=== PATIENT | male | born 1955 | race Caucasian/White ===

== ENCOUNTER 2025-08-10 15:36 | Inpatient (IN) | payer MEDICARE, OTHER ==
[~2025-08-10] VITALS: Ht 175.3 cm; Wt 84.6 kg
[2025-08-10] MEDS ORDERED: AMLO10TA59 GT (15:55)
[2025-08-10] MEDS ORDERED: PANT40TA49 GT (15:55)
[2025-08-10] MEDS ORDERED: CARV12.52 GT (15:55)
[2025-08-10] MEDS ORDERED: ATOR10TA GT (15:55)
[2025-08-10] MEDS ORDERED: SILO8CAP2 GT (15:55)
[2025-08-10] MEDS ORDERED: FAMO20TA8 GT (15:55)
[2025-08-10] MEDS ORDERED: VALP250C3 GT (15:55)
[2025-08-10] MEDS: IV NORMAL SALINE 1000 ML BAG IV ONE (16:11)
[2025-08-10] MEDS: PIPERACILLIN SODIUM/TAZOBACTAM 3.375 G in IV DEXTROSE 5% 50 ML IV ONE (16:11)
[2025-08-10] MEDS ORDERED: PIPERACILLIN/TAZOBACTAM/D5W 50 ML IV ONE (16:12)
[2025-08-10] MEDS ORDERED: CLINDAMYCIN 600 MG PIGGYBACK**ER OMNI IV ONE (16:12)
[2025-08-10] MEDS ORDERED: VANCOMYCIN IV 200 ML ONE (16:12)
[2025-08-10 16:20] LABS: PLATELET COUNT (AUTO) 241 K/uL (152-348); RED BLOOD CELL COUNT(AUTO) 4.96 MIL/uL (4.06-5.63); RED CELL DISTRIBUTION WIDTH 14.5 % (12.1-16.2); WHITE BLOOD COUNT (AUTO) 10.9 K/uL (3.6-10.2)
[2025-08-10 16:36] LABS: ASPARTATE AMINOTRANSFERASE 14 U/L (15-37); CREATININE 1.2 mg/dL (0.6-1.3); TOTAL PROTEIN, SERUM 9.0 g/dL (6.4-8.2); UREA NITROGEN, BLOOD 46 mg/dL (7-18)
[2025-08-10 16:38] LABS: SODIUM SERUM 159 mmol/L (136-145)
[2025-08-10] MEDS: CLINDAMYCIN PHOSPHATE IV 600 MG in IV DEXTROSE 5% 100 ML IV ONE (16:42)
[2025-08-10 17:01] LABS: *BILIRUBIN,URIN 1+ (NEGATIVE); *CLARITY,URINE CLEAR (CLEAR); *KETONES,URINE TRACE (NEGATIVE); *PROTEIN,URINE 2+ (NEGATIVE); *UROBILINOGEN,URINE 4.0 E.U./dl (NORMAL); LEUKOCYTE ESTERASE ,URINE NEGATIVE (NEGATIVE); NITRITE, URINE NEGATIVE (NEGATIVE); UGLUCOSE NEGATIVE (NEGATIVE)
[2025-08-10 17:02] LABS: *BLOOD, URINE TRACE (NEGATIVE); *COLOR,URINE DARK YELLOW (YELLOW)
[2025-08-10 17:11] LABS: SQUAMOUS EPITHELIAL CELL,UR FEW /HPF (NONE SEEN)
[2025-08-10] MEDS: VANCOMYCIN IV 1,000 MG in IV DEXTROSE 5% 250 ML IV ONE (17:25)
[2025-08-10] MEDS ORDERED: REMEDY ESSENTIAL ZINC PASTE 113 GM TP PRN (18:45)
[2025-08-10] MEDS ORDERED: ACETAMINOPHEN 325 MG TABLET PO PRN (18:45)
[2025-08-10] MEDS ORDERED: ONDANSETRON 4 MG/2 ML VIAL IV PRN (18:45)
[2025-08-10] MEDS ORDERED: PIPERACILLIN SODIUM/TAZOBACTAM 3.375 G in IV DEXTROSE 5% 50 ML IV SCH (20:00)
[2025-08-10] MEDS ORDERED: ACETAMINOPHEN 650 MG/20.3 ML LIQUID UDC ONE (20:14)
[2025-08-10] MEDS: IV 1/2NS 1000 ML 1,000 ML IV PRN (20:31)
[2025-08-10] MEDS: ACETAMINOPHEN 650 MG/20.3 ML LIQUID UDC GT PRN (20:32)
[2025-08-10] MEDS ORDERED: VALPROIC ACID 250 MG CAPSULE PO SCH (21:00)
[2025-08-10] MEDS ORDERED: PANTOPRAZOLE SODIUM 40 MG TABLET.DR PO SCH (21:00)
[2025-08-10 21:16] VITALS: BP 132/92
[2025-08-10 22:15] VITALS: BP 111/80; TEMP 98.4; O2SAT 97
[2025-08-10] MEDS: PANTOPRAZOLE ORAL SUSPENSION 40 MG SUSPDR.PKT GT SCH (22:34)
[2025-08-10] MEDS: ATORVASTATIN 10 MG TABLET GT SCH (22:34)
[2025-08-10] MEDS: CARVEDILOL 12.5 MG TABLET GT SCH (22:36)
[2025-08-10] MEDS: LACTULOSE 20 G/30 ML LIQUID UDC GT ONE ×2 (22:37→22:50)
[2025-08-10] MEDS: VALPROIC ACID 250 MG/5 ML LIQUID UDC GT SCH (22:37)
[2025-08-11] VITALS (12 sets, daily range): BP systolic 103–123; BP diastolic 60–81; TEMP 97.3–98.3; O2SAT 92–99
[2025-08-11] MEDS ORDERED: PIPERACILLIN/TAZOBACTAM/D5W 50 ML IV ONE (02:36)
[2025-08-11] MEDS: PIPERACILLIN SODIUM/TAZOBACTAM 3.375 G in IV DEXTROSE 5% 50 ML IV SCH ×2 (02:38→14:03)
[2025-08-11] MEDS: VANCOMYCIN IV 1,000 MG in IV DEXTROSE 5% 250 ML IV SCH (05:37)
[2025-08-11 07:09] LABS: CREATININE 1.3 mg/dL (0.6-1.3); SODIUM SERUM 155.0 mmol/L (136-145); UREA NITROGEN, BLOOD 53.0 mg/dL (7-18)
[2025-08-11 07:33] LABS: RED BLOOD CELL COUNT(AUTO) 4.39 MIL/uL (4.06-5.63); RED CELL DISTRIBUTION WIDTH 14.7 % (12.1-16.2); WHITE BLOOD COUNT (AUTO) 10.7 K/uL (3.6-10.2)
[2025-08-11] MEDS: ALBUTEROL SULFATE 2.5 MG/3 ML NEBU NEB SCH (07:40)
[2025-08-11] MEDS: IPRATROPIUM BROMIDE 0.5 MG/2.5 ML NEBU NEB SCH (07:40)
[2025-08-11] MEDS: AMLODIPINE 10 MG TABLET GT SCH (08:37)
[2025-08-11] MEDS ORDERED: FAMOTIDINE 20 MG TABLET GT SCH ×2 (09:00→12:00)
[2025-08-11] MEDS ORDERED: SILODOSIN 8 MG GT SCH (09:00)
[2025-08-11 10:00] LABS: EOSINOPHILS % (MANUAL) 1 % (0-8); LYMPHOCYTES % (MANUAL) 10 % (20-40); MONOCYTES % (MANUAL) 5 % (2-10); NEUTROPHILS % (MANUAL) 84 % (42-75); PLATELET COUNT (AUTO) 154 K/uL (152-348)
[2025-08-11 10:02] LABS: PLATELET ESTIMATE ADEQUATE
[2025-08-11] MEDS: POTASSIUM CHLORIDE 20 MEQ POWDER PACKET GT ONE (11:30)
[2025-08-11] MEDS ORDERED: PIPERACILLIN SODIUM/TAZOBACTAM 3.375 G in IV DEXTROSE 5% 50 ML IV SCH (12:00)
[2025-08-11] MEDS: OSMOLITE 1.2 CAL 1,000 ML LIQUID GT PRN (12:57)
[2025-08-11] MEDS: DOXAZOSIN 1 MG TABLET GT SCH (14:07)
[2025-08-11] MEDS: VANCOMYCIN HCL 750 MG in IV DEXTROSE 5% 250 ML IV SCH (16:16)
[2025-08-11] MEDS: MAGNESIUM HYDROXIDE 30 ML LIQUID UDC GT PRN (21:44)
[2025-08-12] VITALS (15 sets, daily range): BP systolic 104–128; BP diastolic 65–77; TEMP 97.2–97.9; O2SAT 95–99
[2025-08-12 07:31] LABS: PLATELET COUNT (AUTO) 124 K/uL (152-348); RED BLOOD CELL COUNT(AUTO) 3.81 MIL/uL (4.06-5.63); RED CELL DISTRIBUTION WIDTH 14.1 % (12.1-16.2); WHITE BLOOD COUNT (AUTO) 5.5 K/uL (3.6-10.2)
[2025-08-12 07:32] LABS: CREATININE 1.0 mg/dL (0.6-1.3); SODIUM SERUM 147.0 mmol/L (136-145); UREA NITROGEN, BLOOD 50.0 mg/dL (7-18)
[2025-08-12 08:20] LABS: ABG BASE EXCESS 0.5 mmol/L (-2.0-3.0); ABG HCO3 23.8 mmol/L (21.0-28.0); ABG PCO2 34.0 mmHg (35.0-48.0); ABG PH 7.463 (7.350-7.450); ABG PO2 92.6 mmHg (83.0-108.0); ABG SITE RIGHT RADIAL; ABG TOTAL HEMOGLOBIN 12.8 G/dL (13.5-17.5); AaDO2 97.5 mmHg; FIO2 28.0 %; FLOW, BLOOD GAS 2.00 L/min (0.00-30.00)
[2025-08-12] MEDS ORDERED: FAMOTIDINE 20 MG TABLET GT SCH (09:00)
[2025-08-12] MEDS ORDERED: BISACODYL 10 MG SUPP.RECT RC PRN (10:45)
[2025-08-12] MEDS: LACTULOSE 20 G/30 ML LIQUID UDC PO SCH (11:26)
[2025-08-13] VITALS (14 sets, daily range): BP systolic 119–160; BP diastolic 69–94; TEMP 97.4–98.8; O2SAT 95–99
[2025-08-13 04:45] LABS: PLATELET COUNT (AUTO) 128 K/uL (152-348); RED BLOOD CELL COUNT(AUTO) 3.59 MIL/uL (4.06-5.63); RED CELL DISTRIBUTION WIDTH 13.9 % (12.1-16.2); WHITE BLOOD COUNT (AUTO) 4.6 K/uL (3.6-10.2)
[2025-08-13 04:54] LABS: CREATININE 0.7 mg/dL (0.6-1.3); SODIUM SERUM 148.0 mmol/L (136-145); UREA NITROGEN, BLOOD 27.0 mg/dL (7-18)
[2025-08-13] MEDS: POTASSIUM CHLORIDE 20 MEQ POWDER PACKET GT ONE (10:29)
[2025-08-13] MEDS: ACIDOPHILUS/BULGARICUS CHEW TAB PO SCH (20:42)
[2025-08-14] VITALS (14 sets, daily range): BP systolic 132–171; BP diastolic 81–93; TEMP 97.6–98.1; O2SAT 95–99
[2025-08-14 07:33] LABS: PLATELET COUNT (AUTO) 147 K/uL (152-348); RED BLOOD CELL COUNT(AUTO) 3.62 MIL/uL (4.06-5.63); RED CELL DISTRIBUTION WIDTH 13.9 % (12.1-16.2); WHITE BLOOD COUNT (AUTO) 4.6 K/uL (3.6-10.2)
[2025-08-14 07:49] LABS: SODIUM SERUM 140.0 mmol/L (136-145); UREA NITROGEN, BLOOD 10.0 mg/dL (7-18)
[2025-08-14 07:59] LABS: CREATININE 0.5 mg/dL (0.6-1.3)
[2025-08-14] MEDS: PIPERACILLIN SODIUM/TAZOBACTAM 3.375 G in IV DEXTROSE 5% 100 ML IV SCH (14:28)
[2025-08-15] VITALS (12 sets, daily range): BP systolic 122–156; BP diastolic 65–83; TEMP 97.9–98.6; O2SAT 96–99
[2025-08-15 07:44] LABS: PLATELET COUNT (AUTO) 155 K/uL (152-348); RED BLOOD CELL COUNT(AUTO) 3.79 MIL/uL (4.06-5.63); RED CELL DISTRIBUTION WIDTH 13.7 % (12.1-16.2); WHITE BLOOD COUNT (AUTO) 5.1 K/uL (3.6-10.2)
[2025-08-15 08:03] LABS: CREATININE 0.6 mg/dL (0.6-1.3); SODIUM SERUM 142 mmol/L (136-145); UREA NITROGEN, BLOOD 11 mg/dL (7-18)
[2025-08-16] VITALS (10 sets, daily range): BP systolic 123–141; BP diastolic 72–85; TEMP 98.5–98.7; O2SAT 96–98
[2025-08-16 07:39] LABS: PLATELET COUNT (AUTO) 142 K/uL (152-348); RED BLOOD CELL COUNT(AUTO) 3.89 MIL/uL (4.06-5.63); RED CELL DISTRIBUTION WIDTH 13.8 % (12.1-16.2); WHITE BLOOD COUNT (AUTO) 5.4 K/uL (3.6-10.2)
[2025-08-16 07:49] LABS: CREATININE 0.5 mg/dL (0.6-1.3); SODIUM SERUM 142 mmol/L (136-145); UREA NITROGEN, BLOOD 10 mg/dL (7-18)
[2025-08-16] MEDS: ARGININE/GLUTAMINE/CALCIUM BMB 1 EACH POWD.PACK GT SCH (08:26)
[2025-08-16] MEDS: PROTEIN SUPPLEMENT (PROSTAT) 30 ML LIQUID GT SCH (08:26)
[2025-08-16] MEDS: GUAIFENESIN/DEXTROMETHORPHAN 5 ML UDC PO PRN (21:01)
[2025-08-17] VITALS (13 sets, daily range): BP systolic 126–174; BP diastolic 73–98; TEMP 97.5–98.7; O2SAT 95–99
[2025-08-17 07:05] LABS: CREATININE 0.6 mg/dL (0.6-1.3); SODIUM SERUM 139 mmol/L (136-145); UREA NITROGEN, BLOOD 14 mg/dL (7-18)
[2025-08-17 07:09] LABS: PLATELET COUNT (AUTO) 159 K/uL (152-348); RED BLOOD CELL COUNT(AUTO) 3.81 MIL/uL (4.06-5.63); RED CELL DISTRIBUTION WIDTH 14.0 % (12.1-16.2); WHITE BLOOD COUNT (AUTO) 5.1 K/uL (3.6-10.2)
[2025-08-17] MEDS: ACETYLCYSTEINE 10% 4ML VIAL NEB SCH (19:46)
[2025-08-18] VITALS (10 sets, daily range): BP systolic 117–130; BP diastolic 48–75; TEMP 97.6–98.5; O2SAT 95–99
[2025-08-18 06:49] LABS: PLATELET COUNT (AUTO) 167 K/uL (152-348); RED BLOOD CELL COUNT(AUTO) 3.69 MIL/uL (4.06-5.63); RED CELL DISTRIBUTION WIDTH 13.9 % (12.1-16.2); WHITE BLOOD COUNT (AUTO) 5.6 K/uL (3.6-10.2)
[2025-08-18 07:03] LABS: CREATININE 0.6 mg/dL (0.6-1.3); SODIUM SERUM 137 mmol/L (136-145); UREA NITROGEN, BLOOD 15 mg/dL (7-18)
[2025-08-18] MEDS: ACETYLCYSTEINE 10% 4ML VIAL NEB SCH (08:15)
[2025-08-18] MEDS ORDERED: LEVO500T90 PO (11:34)
[2025-08-18] MEDS ORDERED: METR500T PO (11:34)
[2025-08-19 17:08] LABS: ADENOVIRUS Not Detected (Not Detected); CORONAVIRUS 229E Not Detected (Not Detected); CORONAVIRUS HKU1 Not Detected (Not Detected); CORONAVIRUS NL63 Not Detected (Not Detected); CORONAVIRUS OC43 Not Detected (Not Detected); NP BORDETELLA PERTUSIS Not Detected (Not Detected); NP CHLAMYDOPHILA PNEUMONIAE Not Detected (Not Detected); NP HUMAN METAPNEUMOVIRUS Not Detected (Not Detected); NP HUMAN RHINO/ENTERO VIRUS Detected (Not Detected); NP INFLUENZA A Not Detected (Not Detected); NP INFLUENZA A/H1 Not Detected (Not Detected); NP INFLUENZA A/H1-2009 Not Detected (Not Detected); NP INFLUENZA A/H3 Not Detected (Not Detected); NP INFLUENZA B Not Detected (Not Detected); NP MYCOPLASMA PNEUMONIAE Not Detected (Not Detected); NP PARAINFLUENZA 1 Not Detected (Not Detected); NP PARAINFLUENZA 2 Not Detected (Not Detected); NP PARAINFLUENZA 3 Not Detected (Not Detected); NP PARAINFLUENZA 4 Not Detected (Not Detected); NP RESPIRATORY SYNCYTIAL VIRUS Not Detected (Not Detected)
== END 2025-08-18 21:35 | disposition home health service (06) | DRG 871 ==
LOC: ER 15:39 → TELE3 21:33 → MEDSURG3 08-14 12:16
PROVIDERS: ADMIT Nurse Practitioner Acute Care; ATTEND Nurse Practitioner Acute Care
PROC: 05HF33Z Insertion of Infusion Device into Left Cephalic Vein, Percutaneous Approach (ICD-10-PCS; principal; 2025-08-17)
DX: A41.9 Sepsis, unspecified organism (principal); E43 Unspecified severe protein-calorie malnutrition; J69.0 Pneumonitis due to inhalation of food and vomit; G93.41 Metabolic encephalopathy; J96.01 Acute respiratory failure with hypoxia; E87.0 Hyperosmolality and hypernatremia; D68.59 Other primary thrombophilia; E88.09 Other disorders of plasma-protein metabolism, not elsewhere classified; L89.626 Pressure-induced deep tissue damage of left heel; N17.9 Acute kidney failure, unspecified; R65.20 Severe sepsis without septic shock; N49.2 Inflammatory disorders of scrotum; I69.391 Dysphagia following cerebral infarction; G40.909 Epilepsy, unspecified, not intractable, without status epilepticus; I70.203 Unspecified atherosclerosis of native arteries of extremities, bilateral legs; I11.9 Hypertensive heart disease without heart failure; E86.0 Dehydration; Z68.24 Body mass index [BMI] 24.0-24.9, adult; Z74.01 Bed confinement status; K56.41 Fecal impaction; R00.0 Tachycardia, unspecified; R13.10 Dysphagia, unspecified; E86.1 Hypovolemia; E78.5 Hyperlipidemia, unspecified; Z93.1 Gastrostomy status; Z84.19 Family history of other disorders of kidney and ureter; M24.572 Contracture, left ankle; M24.571 Contracture, right ankle; N43.3 Hydrocele, unspecified; L98.491 Non-pressure chronic ulcer of skin of other sites limited to breakdown of skin; I51.89 Other ill-defined heart diseases
CPT/HCPCS: 36415; 36600; 70030-TC; 71045; 76870; 82803; 83605; 83735; 84100; 84484; 85025; 85730; 87040; 87070; 87077; 87086; 93307; 94640; 94760; A4606; A4663; A6209; A6213; G0378; J2543; J3373; J3490; J3590; J7040; J7050; J7070

== ENCOUNTER 2025-09-08 14:30 | Inpatient (IN) | payer MEDICARE, OTHER ==
[~2025-09-08] VITALS: Ht 167.6 cm; Wt 73.0 kg
[~2025-09-08 14:30] MED LIST: AMLO10TA59 GT; ATOR10TA GT; CARV12.52 GT; FAMO20TA8 GT; LEVO-43 PO; METR500T PO; PANT40TA49 GT; SILO8CAP2 GT; VALP250C3 GT
[2025-09-08 14:45] LABS: PLATELET COUNT (AUTO) 122 K/uL (152-348); RED BLOOD CELL COUNT(AUTO) 3.96 MIL/uL (4.06-5.63); RED CELL DISTRIBUTION WIDTH 14.6 % (12.1-16.2); WHITE BLOOD COUNT (AUTO) 5.3 K/uL (3.6-10.2)
[2025-09-08 14:53] LABS: CREATININE 0.8 mg/dL (0.6-1.3); SODIUM SERUM 151.0 mmol/L (136-145); UREA NITROGEN, BLOOD 32.0 mg/dL (7-18)
[2025-09-08] MEDS ORDERED: LIDOCAINE 2% (GLYDO= UROJET) 10 ML JELLY MM ONE (16:26)
[2025-09-08] MEDS: LIDOCAINE 2% (GLYDO= UROJET) 10 ML JELLY MM ONE (16:35)
[2025-09-08 17:00] VITALS: BP 122/88
[2025-09-08 17:00] LABS: *BLOOD, URINE 3+ (NEGATIVE); *CLARITY,URINE TURBID (CLEAR); *COLOR,URINE RED (YELLOW); *KETONES,URINE TRACE (NEGATIVE); *UROBILINOGEN,URINE 2.0 E.U./dl (NORMAL); LEUKOCYTE ESTERASE ,URINE NEGATIVE (NEGATIVE); NITRITE, URINE NEGATIVE (NEGATIVE); UGLUCOSE NEGATIVE (NEGATIVE)
[2025-09-08 17:03] LABS: *BILIRUBIN,URIN 1+ (NEGATIVE); *PROTEIN,URINE 3+ (NEGATIVE)
[2025-09-08 17:27] LABS: SQUAMOUS EPITHELIAL CELL,UR FEW /HPF (NONE SEEN)
[2025-09-08] MEDS ORDERED: DIATR MEGLU/DIATRIZOATE SODIUM 30 ML BOTTLE ONE ×2 (17:31→18:22)
[2025-09-08] MEDS: IV NORMAL SALINE 1000 ML BAG IV ONE (20:15)
[2025-09-08] MEDS ORDERED: REMEDY ESSENTIAL ZINC PASTE 113 GM TP PRN (20:45)
[2025-09-08] MEDS ORDERED: ONDANSETRON 4 MG/2 ML VIAL IV PRN (20:45)
[2025-09-08] MEDS ORDERED: ACETAMINOPHEN 325 MG TABLET PO PRN (20:45)
[2025-09-08] MEDS ORDERED: MAGNESIUM HYDROXIDE 30 ML LIQUID UDC PO PRN (20:45)
[2025-09-08 22:20] VITALS: BP 121/91; TEMP 98.6; O2SAT 99
[2025-09-08] MEDS: IV 1/2NS 1000 ML 1,000 ML IV PRN (22:34)
[2025-09-09 05:42] VITALS: BP 137/57; TEMP 97.9; O2SAT 98
[2025-09-09] MEDS: PANTOPRAZOLE ORAL SUSPENSION 40 MG SUSPDR.PKT GT SCH (06:08)
[2025-09-09] MEDS ORDERED: PANTOPRAZOLE SODIUM 40 MG TABLET.DR PO SCH (07:00)
[2025-09-09 11:24] VITALS: BP 159/85; TEMP 98.9; O2SAT 99
[2025-09-09 14:20] VITALS: BP 148/88; O2SAT 98
[2025-09-09 15:09] VITALS: BP 154/80; TEMP 98; O2SAT 97
[2025-09-09 20:47] VITALS: BP 157/92; TEMP 98; O2SAT 100
[2025-09-10 05:35] VITALS: BP 156/93; TEMP 98.3; O2SAT 95
[2025-09-10 06:57] LABS: PLATELET COUNT (AUTO) 128 K/uL (152-348); RED BLOOD CELL COUNT(AUTO) 3.71 MIL/uL (4.06-5.63); RED CELL DISTRIBUTION WIDTH 14.1 % (12.1-16.2); WHITE BLOOD COUNT (AUTO) 5.5 K/uL (3.6-10.2)
[2025-09-10 06:58] LABS: CREATININE 0.6 mg/dL (0.6-1.3); SODIUM SERUM 146 mmol/L (136-145); UREA NITROGEN, BLOOD 23 mg/dL (7-18)
[2025-09-10] MEDS: OSMOLITE 1.2 CAL 1,000 ML LIQUID GT PRN (08:52)
[2025-09-10 11:03] VITALS: BP 149/59; TEMP 98; O2SAT 94
[2025-09-10 15:12] VITALS: BP 148/84; TEMP 97.4; O2SAT 97
[2025-09-10 17:38] VITALS: BP 148/84
[2025-09-10] MEDS: CARVEDILOL 12.5 MG TABLET GT ONE (17:38)
[2025-09-10] MEDS ORDERED: VALPROIC ACID 250 MG/5 ML LIQUID UDC GT SCH (21:00)
[2025-09-10] MEDS ORDERED: PANTOPRAZOLE ORAL SUSPENSION 40 MG SUSPDR.PKT GT SCH (21:00)
[2025-09-10] MEDS ORDERED: ATORVASTATIN 10 MG TABLET GT SCH (21:00)
[2025-09-10] MEDS ORDERED: CARVEDILOL 12.5 MG TABLET GT SCH (21:00)
[2025-09-11] MEDS ORDERED: AMLODIPINE 10 MG TABLET GT SCH (09:00)
[2025-09-11] MEDS ORDERED: FAMOTIDINE 20 MG TABLET GT SCH (09:00)
[2025-09-11] MEDS ORDERED: MISCELLANEOUS MED GT SCH (09:00)
== END 2025-09-10 19:55 | disposition home health service (06) | DRG 640 ==
LOC: ER 14:30 → MEDSURG3 21:32
PROC: 05HA33Z Insertion of Infusion Device into Left Brachial Vein, Percutaneous Approach (ICD-10-PCS; principal; 2025-09-08)
PROC: 0DH67UZ Insertion of Feeding Device into Stomach, Via Natural or Artificial Opening (ICD-10-PCS; 2025-09-08)
DX: E86.0 Dehydration (principal); R53.2 Functional quadriplegia; E87.0 Hyperosmolality and hypernatremia; D68.59 Other primary thrombophilia; I69.391 Dysphagia following cerebral infarction; R13.10 Dysphagia, unspecified; G40.909 Epilepsy, unspecified, not intractable, without status epilepticus; D64.9 Anemia, unspecified; F01.50 Vascular dementia, unspecified severity, without behavioral disturbance, psychotic disturbance, mood disturbance, and anxiety; I10 Essential (primary) hypertension; Z43.1 Encounter for attention to gastrostomy; R31.9 Hematuria, unspecified; Z74.01 Bed confinement status; I69.398 Other sequelae of cerebral infarction; M62.49 Contracture of muscle, multiple sites; I25.2 Old myocardial infarction; E78.5 Hyperlipidemia, unspecified; I25.10 Atherosclerotic heart disease of native coronary artery without angina pectoris
CPT/HCPCS: 36415; 71045; 74018; 83735; 84100; 85025; G0378; J7040; Q9963